=== PATIENT | male | born 1995 | race Caucasian/White ===

== ENCOUNTER 2024-11-02 20:55 | Emergency (ER) | payer SELFPAY ==
[~2024-11-02] VITALS: Ht 188 cm; Wt 132.0 kg
[2024-11-02 21:01] VITALS: O2SAT 99
[2024-11-02 21:31] VITALS: BP 117/84; PULSE 100; RESP 18; TEMP 98; O2SAT 99
[2024-11-02] MEDS ORDERED: IBUP-2029 MT (21:57)
== END 2024-11-03 00:49 | disposition home or self-care (01) ==
LOC: ER 20:55
DX: S20.20XA Contusion of thorax, unspecified, initial encounter (principal); Z68.37 Body mass index [BMI] 37.0-37.9, adult; X58.XXXA Exposure to other specified factors, initial encounter; Y93.89 Activity, other specified; Y92.89 Other specified places as the place of occurrence of the external cause; Y99.8 Other external cause status
CPT/HCPCS: 71101; 99283